=== PATIENT | male | born 1975 | race African-American/Black ===

== ENCOUNTER 2019-05-06 13:27 | Emergency (ER) | payer MEDICAID ==
[~2019-05-06] VITALS: Ht 167.6 cm; Wt 104.0 kg
[~2019-05-06 13:27] MED LIST: LISI-604 PO; METO-385 PO; NORVASC PO
[2019-05-06] MEDS ORDERED: ALBUTEROL (0.083%) 2.5MG/3ML NEB HHN STA (14:24)
[2019-05-06] MEDS ORDERED: IPRATROPIUM BROMIDE (0.02%) 0.5MG/2.5ML NEB HHN STA (14:24)
[2019-05-06] MEDS ORDERED: LEVOFLOXACIN 500MG PREMIX 100 ML IV ONE (14:30)
[2019-05-06 15:34] LABS: BASOPHILS % 0.4 % (0.0-2.0); HEMOGLOBIN. 16.3 g/dL (14.0-18.0); LYMPHOCYTES % 11.4 % (20.0-50.0); MEAN CORPUSCULAR HEMOGLOBIN 26.9 pg (28.0-32.0); MEAN CORPUSCULAR VOLUME 79.5 fL (80.0-94.0); MEAN PLATELET VOLUME 8.5 fl (7.4-10.4); NEUTROPHILS % 79.2 % (40.0-76.0); PLATELET 271 x1000/uL (130-400); RED BLOOD CELL COUNT 6.03 mill/uL (4.7-6.1); RED CELL DISTRIBUTION WIDTH 14.5 % (11.6-14.6)
[2019-05-06 15:41] LABS: INR 0.9; PROTHROMBIN TIME 9.7 sec (9.6-11.0)
[2019-05-06 15:42] LABS: CHLORIDE 102 mEq/L (98-107)
[2019-05-06] MEDS ORDERED: POTASSIUM CHLORIDE 20MEQ TABLET SR PO ONE (16:30)
[2019-05-06] MEDS ORDERED: KCL 20MEQ/100ML PREMIX 100 ML IV ONE (16:30)
[2019-05-06] MEDS ORDERED: ASPIRIN 81MG TABLET PO ONE ×2 (16:30→16:45)
[2019-05-06] MEDS ORDERED: SODIUM CHLORIDE 0.9% 1,000 ML IV ONE (16:42)
[2019-05-06] MEDS ORDERED: OSELTAMIVIR 75MG CAPSULE PO ONE (16:45)
[2019-05-06 19:45] VITALS: BP 129/81
== END 2019-05-06 19:55 | disposition short-term general hospital (02) ==
LOC: ER 14:02 → CANBEDREQ 17:38 → ER 19:55
DX: J18.9 Pneumonia, unspecified organism (principal); E87.8 Other disorders of electrolyte and fluid balance, not elsewhere classified; I10 Essential (primary) hypertension; R79.89 Other specified abnormal findings of blood chemistry; Z90.49 Acquired absence of other specified parts of digestive tract; Z79.899 Other long term (current) drug therapy
CPT/HCPCS: 36415; 71045; 80053; 83605; 83880; 84145; 84484; 85025; 85610; 87040; 87804; 93005; 94644; 96361; 96365; 99285; J1956; J3480; J7030; J7611; Z7610